=== PATIENT | male | born 1945 | race African-American/Black ===

== ENCOUNTER 2017-04-11 13:33 | Inpatient (IN) ==
--- NOTE | 2017-04-10 13:58 | Discharge Summary ---
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 (2) Shoulder pain Priority: Secondary Status: Chronic Qualifiers: Chronicity: chronic Laterality: right Qualified Code(s): M25.511 - Pain in right shoulder; G89.29 - Other chronic pain; G89.29 - Other chronic pain (3) Frozen shoulder Priority: Secondary Status: Chronic Qualifiers: Laterality: right Qualified Code(s): M75.01 - Adhesive capsulitis of right shoulder (4) HTN (hypertension) Priority: Secondary Status: Chronic Qualifiers: Hypertension type: unspecified Qualified Code(s): I10 - Essential (primary ) hypertension (5) HLD (hyperlipidemia) Priority: Secondary Status: Chronic Qualifiers: Hyperlipidemia type: unspecified Qualified Code(s): E78.5 - Hyperlipidemia , unspecified (6) Pacemaker Priority: Secondary Status: Chronic (7) Sick sinus syndrome Priority: Secondary Status: Chronic (8) GERD (gastroesophageal reflux disease) Priority: Secondary Status: Chronic Qualifiers: Esophagitis presence: esophagitis presence not specified Qualified Code(s) : K21.9 - Gastro-esophageal reflux disease without esophagitis (9) Glaucoma Priority: Secondary Status: Chronic Qualifiers: Glaucoma type: unspecified Laterality: unspecified laterality Qualified Code(s): H40.9 - Unspecified glaucoma - Discharge Medications Home Medications: OxyCODONE Immed Rel [Roxicodone 5 MG] 5 mg PO Q6HR PRN 7 Days #28 tablet [Rx] Ergocalciferol (VITAMIN D2) [Vitamin D2] 50,000 unit PO QMONTH 04/11/17 [History ] Losartan/Hydrochlorothiazide [Hyzaar 100-25 Tablet] 0.5 mg PO DAILY 04/11/17 [ History] Multivitamin [One Daily Essential] 1 tab PO DAILY 04/11/17 [History] Pantoprazole Sodium 40 mg PO DAILY 04/11/17 [History] Simvastatin [Zocor] 20 mg PO HS 04/11/17 [History] amLODIPine [Norvasc] 5 mg PO DAILY 04/11/17 [History] Allergies/Adverse Reactions: 3 Allergy/AdvReac Type Severity Reaction Status Date / Time No Known Allergies Allergy Verified 04/11/17 14:40 Primary care physician: PCP NONE - Patient Status Disposition: Home, Self-Care Condition: Good - Discharge Instructions Follow Up With: NONE,PCP [Primary Care Provider] - - Hospital Course Hospital course: Mr. 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 (2) Shoulder pain Priority: Secondary Status: Chronic Qualifiers: Chronicity: chronic Laterality: right Qualified Code(s): M25.511 - Pain in right shoulder; G89.29 - Other chronic pain; G89.29 - Other chronic pain (3) HTN (hypertension) Priority: Secondary Status: Chronic Qualifiers: Hypertension type: unspecified Qualified Code(s): I10 - Essential (primary ) hypertension (4) HLD (hyperlipidemia) Priority: Secondary Status: Chronic Qualifiers: Hyperlipidemia type: unspecified Qualified Code(s): E78.5 - Hyperlipidemia , unspecified (5) Pacemaker Priority: Secondary Status: Chronic (6) Sick sinus syndrome Priority: Secondary Status: Chronic (7) GERD (gastroesophageal reflux disease) Priority: Secondary Status: Chronic Qualifiers: Esophagitis presence: esophagitis presence not specified Qualified Code(s) : K21.9 - Gastro-esophageal reflux disease without esophagitis (8) Glaucoma Priority: Secondary Status: Chronic Qualifiers: Glaucoma type: unspecified Laterality: unspecified laterality Qualified Code(s): H40.9 - Unspecified glaucoma Primary care physician: PCP NONE - Patient Status Functional capacity at discharge: independent ambulation Overall status at discharge: patient is progressing back to baseline - Hospital Course Hospital course: Mr. Erazo is a 72 year old male Status post revision right total shoulder The patient had an uneventful postoperative course. They received antibiotics and physical therapy and were discharged in stable condition. There will follow -up in the office in 2 weeks. - Time Spent with Patient Total time spent providing and/or coordinating discharge services:
--- NOTE | 2017-04-10 13:59 | Physician Discharge Referral ---
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 For more information, call the [place] Tobacco Quit Line at 1-309-MQCM-NOW. - Dressing/Wound Care Site: right shoulder Type of Dressing/Treatments w/Frequency: Pressure dressing in place. Change pressure dressing (4x4 gauze x 10, 2 ABDs, Medipore tape) three times daily until bleeding stops. Cleanse incision with soap and water, pat dry prior to applying new dressings. If drainage/bleeding increase rather than decrease or foul smell, erythema, or other concerning symptoms appear call [facility] office as soon as possible for patient to be seen in office. - Diet/Nutrition Diet/Nutrition Orders: Regular - Activity Activity Orders: Up ad db, Ambulate, Chair, Walker Activity: List: PT/OT. NWB to affected upper extremity. Follow Shoulder Precautions x 6 weeks. Stay in brace during activity and at night. Remove brace during exercises. ICE and elevate extremity frequently throughout the day. - Services Needed Following services are medically necessary services: Nursing, Home Health Aide, Physical Therapy, Occupational Therapy - Transfer Medications Home Medications: OxyCODONE Immed Rel [Roxicodone 5 MG] 5 mg PO Q6HR PRN 7 Days #28 tablet [Rx] Ergocalciferol (VITAMIN D2) [Vitamin D2] 50,000 unit PO QMONTH 04/11/17 [History ] Losartan/Hydrochlorothiazide [Hyzaar 100-25 Tablet] 0.5 mg PO DAILY 04/11/17 [ History] Multivitamin [One Daily Essential] 1 tab PO DAILY 04/11/17 [History] Pantoprazole Sodium 40 mg PO DAILY 04/11/17 [History] Simvastatin [Zocor] 20 mg PO HS 04/11/17 [History] amLODIPine [Norvasc] 5 mg PO DAILY 04/11/17 [History] Allergies/Adverse Reactions: 3 Allergy/AdvReac Type Severity Reaction Status Date / Time No Known Allergies Allergy Verified 04/11/17 14:40 Certification: Further, I certify that my clinical findings support that this patient is homebound (i.e. absences from home require considerable and taxing effort and are for medical reasons or episcopal services or infrequently or short duration when for other reasons) because: Homebound Reason: Post-surgery restriction and or conditions limit ability to leave home Attestation: My signature below is to certify that this patient is under my care and that I, or nurse practitioner, or a physician dental chairside assistant working with me, has a face-to- face encounter with this patient.
[2017-04-11] MEDS ORDERED: CeFAZolin Syr 2,000MG/20 ML 2,000 MG/20 ML SYRINGE IVPB ONE (13:52)
[2017-04-11] MEDS ORDERED: Lidocaine -MPF 1% 2 ML VIAL ID ONE (13:52)
[2017-04-11] MEDS ORDERED: Plasma-Lyte A (PH 7.4) 1,000 ML IVC SCH (14:00)
[2017-04-11] MEDS ORDERED: Ringers Solution, Lactated 1,000 ML IVC SCH ×2 (14:00→20:24)
--- NOTE | 2017-04-11 14:40 | Anesthesia Evaluation PreOp ---
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 History: Other (glaucoma) Other Medical History: GERD Anesthesia History: No Prior Anesthetic Complications, Past Anesthesia (TSR, prostate, pacer placement) Alcohol Use: none Drug use: none Medications and Allergies OxyCODONE Immed Rel [Roxicodone 5 MG] 5 mg PO Q6HR PRN 7 Days #28 tablet [Rx] 3 Allergy/AdvReac Type Severity Reaction Status Date / Time No Known Allergies Allergy Verified 04/11/17 14:40 - Meds/Allergy Pre-op Review Medications Reviewed: Yes Allergies Reviewed: Yes Anesthesia Results - Labs Laboratory Tests 03/28/17 14:45 Hgb 12.5 L Hct 39.2 Anesthesia Exam Selected Entries 04/11/17 13:46 Temperature 98.0 F Pulse Rate 88 Respiratory Rate 18 Blood Pressure 142/85 O2 Sat by Pulse Oximetry 99 Weight: 93kg NPO (# of Hours): 8 - HEENT Pupil (Motor): EOMI Mallampati: II Teeth: Normal Oral Opening: Greater than 3 - LEAD IOS DEVELOPER LOC: Oriented LEAD IOS DEVELOPER Motor: Normal RUE, Normal LUE, Normal RLE, Normal LLE, Normal Face 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
[2017-04-11] MEDS ORDERED: *HR* FentaNYL (PF) 100 MCG/2 ML VIAL ONE (16:15)
[2017-04-11] MEDS ORDERED: *HR* Propofol 200 MG/20 ML VIAL IVP ONE (16:15)
[2017-04-11] MEDS ORDERED: *HR* Midazolam HCl 2 MG/2 ML VIAL ONE (16:15)
[2017-04-11] MEDS ORDERED: Lidocaine -MPF 2% 2 ML VIAL ONE (16:16)
--- NOTE | 2017-04-11 16:24 | History & Physical Report ---
Date of Encounter: 04/11/17 Time of Encounter: 16:23 24 Hour HP Update - Instructions Instructions: If the History and Physical is less than 30 days old and was completed prior to A.M. admission and or procedure and has NOT been updated on calendar day of procedure please complete this update prior to performing procedure. - Update Patient reports changes in Medical Condition: No Changes in examination, assessment, or condition: No Changes in Medication: No Preop tests/diagnostics Reviewed: Yes Surgery Remains Indicated: Yes Consent for Planned Operative Procedure(s) Verified: Yes - Pre-Operative Checklist Preoperative Checklist Indicated: No Prophylactic Antibiotic Ordered: Yes Is VTE Prophylaxis Indicated?: Yes
[2017-04-11] MEDS ORDERED: ROPIVACAINE HCL/PF 0.5% 30 ML VIAL ONE (17:06)
[2017-04-11] MEDS ORDERED: Ethanol\\Acetic Acid\\Na Ace\\Ben 1,000 ML IRRIG.SOLN IR ONE (17:08)
--- NOTE | 2017-04-11 17:48 | Anesthesia Procedures ---
Date of Encounter: 04/11/17 Time of Encounter: 17:20 Procedures: Anesthesia - Nerve Block Procedure Date: 04/11/17 Time: 17:20 Allergies/Adv Reactions: No Known Allergies Allergy (Verified 04/11/17 14:40) Pre-op Diagnosis: right shoulder instability Surgical Procedure: right shoulder revision Checklist: Correct Patient Identifier, Correct procedure, History checked Correct side: Right Blood Thinner: No Monitor Applied: EKG, BP, Pulse Oximetry Supplemental Oxygen via Nasal Cannula (L/min): 2 Sedation: Versed (mg): 2 Sedation: Fentanyl (mcg): 50 Indication: Post Op Analgesia Pre-op Neuro Deficits: No Block Type: Supraclavicular Catheter placed: No Sterile Technique: Yes Ultrasound used: Yes Anatomy identified: Yes Visual spread of Local: Yes Neuro Stimulation: No Blood on Needle Aspiration: No Smooth Injection of Local: Yes Pain with Injection of Local: No Prep: Chlorhexadine Needle: 22 x 50 mm Stimuplex Local: Ropivacaine (0.5%) Volume (cc): 25 Number of Attempts: 1 Complications: None/effective block
[2017-04-11] MEDS ORDERED: *HR* HYDROmorphone (PF) 1 MG/ML SYRINGE IVP PRN (17:50)
[2017-04-11] MEDS ORDERED: *HR* Promethazine 25 MG/ML VIAL IVP PRN (17:50)
[2017-04-11] MEDS ORDERED: *HR* Enoxaparin 30 MG/0.3 ML SYRINGE SQ SCH (18:00)
--- NOTE | 2017-04-11 18:43 | Orthopedic Operative Note ---
Date of procedure: 04/11/17 Pre-op diagnosis: Unstable right total shoulder Post-op diagnosis: same Procedure: Procedure: Right Revision Total Shoulder replacement to a reverse Estimated blood loss: 300 cc Hardware: Arthrex: Metal and plastic: Large glenoid baseplate, 42+4 sphere, 8 stem, 3 constrained Pooja, one 6.5 screw and 2, 4.5 screws Procedural Notes: Unstable right total shoulder incompetent subscap Operative procedure: The patient was brought to the operating room and placed on the operating room table. The patient was placed in the modified beachchair position. All pressure points were padded appropriately. And the head was stabilized in the neutral position. The operative extremity was prepped and draped in the sterile surgical fashion. The patient received IV antibiotics prior to skin incision. A standard deltopectoral approach was made to the operative shoulder. Incision was made to the skin and subcutaneous tissue,hemo stasis was obtained with Bovie cautery. Using careful blunt dissection the deltopectoral interval was developed and the clavipectoral fascia was incised. An extensive debridement was performed, and the shoulder was dislocated. Patient had a incompetent subscap. The humeral head was removed followed by the trunnion. Using an osteotome to clear out the soft tissue, the humeral component was gently removed with the extractor.. Anterior and posterior Bankart retractors were used to expose the glenoid, the glenoid component was removed without incident. First Pooja was removed from the metal posts each post was removed with the extraction device. No significant bone loss. The glenoid guide was seated the centering hole was made the glenoid was reamed with the appropriate large reamer. The glenoid baseplate was seated and secured and locked in place with a 30 mm central 6.5 screw and 2 peripheral 4.5 screws. The baseplate was irrigated and dried 42+4 glenosphere was seated and secured. Attention was then turned to the humeral side. The humerus was reamed and broached up to its appropriate size 8 in 20 degrees of retroversion. Trial reduction found the shoulder to be relocatable. Trial components were removed, real implants were seated. Trial reduction found the shoulder to be stable with the appropriate 3 constrained Pooja. The trial implants were removed the real implants were seated and secured in the shoulder was reduced. The patient had excellent motion and excellent stability no shuck. The PA closed the shoulder. The deep tissue was irrigated with pulse irrigation deltopectoral interval was closed with #2 PDS suture over Gelfoam soaked in vancomycin. Superficially the subcutaneous tissue was closed with 0 PDS suture, the skin was closed with Dermabond. The patient placed sterile dressing, postoperative brace extubated and transferred to the recovery room in stable condition. Anesthesia: GETA Surgeon: Saurav Medina Was there an front end assistant present: No Estimated blood loss (cc): 300 Condition: stable Disposition: PACU
[2017-04-11 19:25] LABS: Hemoglobin 10.4 g/dL (12.9-16.9)
--- NOTE | 2017-04-11 19:26 | Anesthesia Evaluation Post Op ---
Date of Encounter: 04/11/17 Time of Encounter: 19:30 - Vital Signs Vital Signs: Vital Signs/O2 Sat/Glucose, Most Current Temp Pulse Resp BP Pulse Ox 04/11/17 19:12 65 16 126/75 95 04/11/17 19:02 97.0 F L 70 18 128/75 96 04/11/17 17:19 69 16 126/80 97 04/11/17 16:50 66 16 146/86 97 - Lungs Lungs: Clear Ascult./Percussion - Airway Airway: Non-obstructed - Cardiovascular Regular Rate - Mental Status Mental Status: Alert & Oriented, Answers Appropriately - Pain Pain Scale: 1 - Nausea Vomiting Nausea Vomiting: Not Present - Hydration Hydration: Ice chips - Discharge PostOp Status: Transfer Patient to floor
[2017-04-11] MEDS ORDERED: Ondansetron 4 MG/2 ML VIAL IVP PRN (20:24)
[2017-04-11] MEDS ORDERED: Temazepam 15 MG CAPSULE PO PRN (20:24)
[2017-04-11] MEDS ORDERED: Sennosides 8.6 MG TABLET PO PRN (20:24)
[2017-04-11] MEDS ORDERED: MOM Conc 10 ML UD.LIQ PO PRN (20:24)
[2017-04-11] MEDS ORDERED: Naloxone 0.4 MG/ML INJ IVP PRN (20:24)
[2017-04-11] MEDS ORDERED: *HR* OxyCODONE Immed Rel 5 MG TABLET PO PRN (20:24)
[2017-04-11] MEDS: *HR* HYDROmorphone (PF) 1 MG/ML SYRINGE IVP PRN (20:40)
[2017-04-11] MEDS ORDERED: Losartan/HCTZ 50-12.5 TABLET PO SCH (21:45)
[2017-04-12] MEDS: CeFAZolin Premix DUPLEX 2,000 MG/50 ML BAG IVPB SCH ×2 (00:32→07:43)
[2017-04-12] MEDS: *HR* OxyCODONE Immed Rel 5 MG TABLET PO PRN ×4 (02:28→15:19)
[2017-04-12] MEDS ORDERED: *HR* Enoxaparin 30 MG/0.3 ML SYRINGE SQ SCH (06:00)
--- NOTE | 2017-04-12 06:53 | Orthopedics Progress Note ---
Date of Encounter: 04/12/17 Time of Encounter: 06:52 - Assessment and Plan (1) Painful orthopaedic hardware Current Visit: No Status: Chronic (2) Shoulder pain Current Visit: No Status: Chronic Qualifiers: Chronicity: chronic Laterality: right Qualified Code(s): M25.511 - Pain in right shoulder; G89.29 - Other chronic pain; G89.29 - Other chronic pain (3) HTN (hypertension) Current Visit: No Status: Chronic Qualifiers: Hypertension type: unspecified Qualified Code(s): I10 - Essential (primary ) hypertension (4) HLD (hyperlipidemia) Current Visit: No Status: Chronic Qualifiers: Hyperlipidemia type: unspecified Qualified Code(s): E78.5 - Hyperlipidemia , unspecified (5) Pacemaker Current Visit: No Status: Chronic (6) Sick sinus syndrome Current Visit: No Status: Chronic (7) GERD (gastroesophageal reflux disease) Current Visit: No Status: Chronic Qualifiers: Esophagitis presence: esophagitis presence not specified Qualified Code(s) : K21.9 - Gastro-esophageal reflux disease without esophagitis (8) Glaucoma Current Visit: No Status: Chronic Qualifiers: Glaucoma type: unspecified Laterality: unspecified laterality Qualified Code(s): H40.9 - Unspecified glaucoma Subjective Interval history: Patient was seen this morning doing well without complaints. Afebrile vital signs stable. Operative extremity: Neurovascularly intact Blood draining from incision federico added Calves nontender Assessment and plan: Continue with postoperative care hematocrit 33 we will monitor incision before discharge pressure dressing applied Objective Vital signs: Vital Signs Temp Pulse Resp BP Pulse Ox 04/12/17 02:42 97.7 F 62 18 98/61 96 04/11/17 23:14 98.2 F 65 16 127/67 95 04/11/17 22:11 97.7 F 60 16 123/65 93 04/11/17 21:24 97.6 F 62 16 148/74 96 04/11/17 20:41 97.8 F 64 16 138/75 97 04/11/17 20:15 97.6 F 62 16 150/87 96 04/11/17 19:52 97.4 F L 62 16 136/87 95 04/11/17 19:42 64 16 155/96 97 04/11/17 19:32 97.4 F L 61 16 138/77 96 04/11/17 19:22 64 16 130/77 95 04/11/17 19:12 65 16 126/75 95 04/11/17 19:02 97.0 F L 70 18 128/75 96 04/11/17 17:19 69 16 126/80 97 04/11/17 16:50 66 16 146/86 97 04/11/17 13:46 98.0 F 88 18 142/85 99 Intake and Output 04/11/17 04/11/17 04/12/17 15:59 23:59 07:59 Intake Total 50 / 50 Output Total 300 / 300 350 / 350 Balance -300 / -300 -300 / -300 Intake: IV Fluids 50 / 50 Ancef Premix DUPLEX 2,000 mg In 50 / 50 50 ml @ 100 mls/hr IVPB Q8HR [facility] Rx#:[id number] Oral 0 / 0 Output: Urine 350 / 350 Estimated Blood Loss 300 / 300 Other: Weight 92.986 kg - Labs CBC & BMP: 04/11/17 19:16 Labs: Abnormal lab results Hgb 10.4 g/dL (12.9-16.9) L 04/11/17 19:16 Hct 33.0 % (37.5-50.1) L 04/11/17 19:16 - VTE Documentation of Mechanical Device: Venous foot pump, device Consult Discharge Plan - Plan Referrals: NONE,PCP [Primary Care Provider] -
[2017-04-12 07:03] LABS: Hematocrit 33.9 % (37.5-50.1); Hemoglobin 10.9 g/dL (12.9-16.9)
[2017-04-12] MEDS ORDERED: amLODIPine 5 MG TABLET PO SCH (09:00)
[2017-04-12] MEDS ORDERED: Multivit/Ca/Min/Fe/FA 1 TAB TABLET PO SCH (09:00)
[2017-04-12 12:33] VITALS: BP 118/60
[2017-04-12 12:52] LABS: Hematocrit 32.8 % (37.5-50.1); Hemoglobin 10.8 g/dL (12.9-16.9)
[2017-04-12] MEDS: *HR* HYDROmorphone (PF) 1 MG/ML SYRINGE IVP PRN (13:24)
--- NOTE | 2017-04-12 15:25 | Event Note ---
Date of Encounter: 04/12/17 Time of Encounter: 12:10 PCR- POD#1 R shoulder JAREN and revision to TSR reverse 04/11/17 Adam PCR - Patient seen at bedside. Pain control: Adequate Participating in PT. All questions and concerns addressed. Educated on use of incentive spirometer, ambulation, and hydration. Patient educated on post-operative restrictions and care. Addressed: Bleeding to incision reduced but ongoing. Will order pressure dressings TID change for next several days until drainage stops. Bethany in place. D/C plan:. Home with Home health tonight or tomorrow.
== END 2017-04-12 17:00 | disposition home or self-care (01) | DRG 483 ==
LOC: SAMDAY 13:33 → 3NENU 20:23
PROVIDERS: ADMIT Orthopaedic Surgery; ATTEND Orthopaedic Surgery